=== PATIENT | female | born 1975 | race African-American/Black ===

== ENCOUNTER 2016-09-16 10:28 | Emergency (ER) | payer SELFPAY ==
[2016-09-16] MEDS ORDERED: NORMAL SALINE 1000 ML 1,000 ML IV ONE (10:37)
--- NOTE | 2016-09-16 12:01 | ER Document Report ---
ED Medical Screen (RME) - General Chief Complaint: Vaginal Bleeding Stated Complaint: VAGINAL BLEEDING Notes: 40-year-old female presents with complaints of painful heavy menses. Patient notes she has a history of this, has required transfusion past. I have greeted and performed a rapid initial assessment of this patient. A comprehensive ED assessment and evaluation of the patient, analysis of test results and completion of the medical decision making process will be conducted by additional ED providers. PHYSICAL EXAMINATION: GENERAL: Well-appearing, well-nourished and in no acute distress. Mildly tachycardic HEAD: Atraumatic, normocephalic. EYES: Pupils equal round extraocular movements intact, conjunctiva are normal. ENT: Nares patent NECK: Normal range of motion LUNGS: No respiratory distress Musculoskeletal: Normal range of motion NEUROLOGICAL: Normal speech, normal gait. PSYCH: Normal mood, normal affect. SKIN: Warm, Dry, normal turgor, no rashes or lesions noted. TRAVEL OUTSIDE OF THE [place] IN LAST 30 DAYS: No - Related Data Allergies/Adverse Reactions: aspirin [Aspirin] Allergy (Mild, Verified 09/16/16 11:25) fluoxetine HCl [From Prozac] Allergy (Mild, Verified 09/16/16 11:25) hydrocodone [Hydrocodone] Allergy (Mild, Verified 09/16/16 11:25) methocarbamol [From Robaxin] Allergy (Mild, Verified 09/16/16 11:25) tramadol [Tramadol] Allergy (Verified 09/16/16 11:25) bees Allergy (Uncoded 09/16/16 11:25) Past Medical History - Social History Family history: Reviewed & Not Pertinent Renal/ Medical History: Denies: Hx Peritoneal Dialysis Musculoskeltal Medical History: Reports Hx Arthritis Psychiatric Medical History: Reports: Hx Depression Past Surgical History: Reports: Hx Section - x 2, Hx Tubal Ligation - Immunizations Hx Diphtheria, Pertussis, Tetanus Vaccination: Yes Physical Exam - Vital signs Vitals: Temp Pulse Resp BP Pulse Ox 98.5 F 122 H 18 120/77 99 09/16/16 10:33 09/16/16 10:33 09/16/16 10:33 09/16/16 10:33 09/16/16 10:33 Course - Vital Signs Vital signs: Temp Pulse Resp BP Pulse Ox 98.5 F 122 H 18 120/77 99 09/16/16 10:33 09/16/16 10:33 09/16/16 10:33 09/16/16 10:33 09/16/16 10:33
[2016-09-16 12:24] LABS: ABSOLUTE EOSINOPHILS # (AUTO) 0.1 10^3/uL (0.0-0.6); ABSOLUTE LYMPHOCYTES (AUTO) 1.3 10^3/uL (0.5-4.7); ABSOLUTE MONOCYTES (AUTO) 0.5 10^3/uL (0.1-1.4); ABSOLUTE NEUT (AUTO) 6.6 10^3/uL (1.7-8.2); BASOPHILS % (AUTO) 0.4 % (0-2); EOSINOPHILS % (AUTO) 1.6 % (0-6); HEMATOCRIT 26.8 % (36.0-47.0); HEMOGLOBIN 8.8 g/dL (12.0-15.5); HGB HCT DIFFERENCE -0.4; LYMPHOCYTES % (AUTO) 14.6 % (13-45); MEAN CORPUSCULAR HGB CONC 32.7 g/dL (32.0-36.0); MEAN CORPUSCULAR VOLUME 86 fl (80-97); MONOCYTES % (AUTO) 6.3 % (3-13); RED BLOOD COUNT 3.13 10^6/uL (3.72-5.28); RED CELL DISTRIBUTION WIDTH 15.5 % (11.5-14.0); SEGMENTED NEUTROPHILS % (AUTO) 77.1 % (42-78); WHITE BLOOD COUNT 8.6 10^3/uL (4.0-10.5)
[2016-09-16 12:44] LABS: ALANINE AMINOTRANSFERASE 19 U/L (9-52); ALBUMIN 3.2 g/dL (3.5-5.0); ALKALINE PHOSPHATASE 59 U/L (38-126); ANION GAP 8 (5-19); ASPARTATE AMINO TRANSFERASE 21 U/L (14-36); BILIRUBIN,DIRECT 0.1 mg/dL (0.0-0.4); BILIRUBIN,TOTAL 0.2 mg/dL (0.2-1.3); BLOOD UREA NITROGEN 4 mg/dL (7-20); CALCIUM 8.5 mg/dL (8.4-10.2); CARBON DIOXIDE 26 mmol/L (22-30); CHLORIDE 109 mmol/L (98-107); CREATININE RESULT 0.91 mg/dL (0.52-1.25); GLUCOSE 86 mg/dL (75-110); POTASSIUM 3.8 mmol/L (3.6-5.0); SODIUM 143.1 mmol/L (137-145); TOTAL PROTEIN 5.8 g/dL (6.3-8.2)
[2016-09-16] MEDS ORDERED: MEDROXYPROGESTERONE ACET 10 MG TABLET PO ONE ×2 (15:13→15:17)
--- NOTE | 2016-09-16 15:17 | ER Document Report ---
ED General - General Chief Complaint: Vaginal Bleeding Stated Complaint: VAGINAL BLEEDING TRAVEL OUTSIDE OF THE [place] IN LAST 30 DAYS: No - HPI Patient complains to provider of: vaginal bleeding Notes: Patient coming in with a history of vaginal bleeding states she's had bleeding ever since August 14. Patient denies any shortness of breath weakness or fatigue. Patient states a history of vaginal bleeding the past she was on control which did aid the bleeding however lost her insurance therefore no longer as a way to afford her medication. Patient states she has had blood transfusions in the past. Denies any other discharge and is fevers chills nausea vomiting. States abdominal cramping. - Related Data Allergies/Adverse Reactions: aspirin [Aspirin] Allergy (Mild, Verified 09/16/16 11:25) fluoxetine HCl [From Prozac] Allergy (Mild, Verified 09/16/16 11:25) hydrocodone [Hydrocodone] Allergy (Mild, Verified 09/16/16 11:25) methocarbamol [From Robaxin] Allergy (Mild, Verified 09/16/16 11:25) tramadol [Tramadol] Allergy (Verified 09/16/16 11:25) bees Allergy (Uncoded 09/16/16 11:25) Past Medical History - Social History Smoking Status: Current Every Day Smoker Chew tobacco use (# tins/day): No Frequency of alcohol use: Occasional Drug Abuse: Cocaine Family History: Reviewed & Not Pertinent Patient has suicidal ideation: No Patient has homicidal ideation: No Renal/ Medical History: Denies: Hx Peritoneal Dialysis Musculoskeltal Medical History: Reports Hx Arthritis Psychiatric Medical History: Reports: Hx Depression Past Surgical History: Reports: Hx Section - x 2, Hx Tubal Ligation - Immunizations Hx Diphtheria, Pertussis, Tetanus Vaccination: Yes Review of Systems - Review of Systems Constitutional: No symptoms reported EENT: No symptoms reported Cardiovascular: No symptoms reported Respiratory: No symptoms reported Gastrointestinal: No symptoms reported Genitourinary: No symptoms reported Female Genitourinary: Vaginal bleeding Musculoskeletal: No symptoms reported Skin: No symptoms reported Hematologic/Lymphatic: No symptoms reported Neurological/Psychological: No symptoms reported -: Yes All other systems reviewed and negative Physical Exam - Vital signs Vitals: Temp Pulse Resp BP Pulse Ox 98.5 F 122 H 18 120/77 99 09/16/16 10:33 09/16/16 10:33 09/16/16 10:33 09/16/16 10:33 09/16/16 10:33 Interpretation: Normal - General General appearance: Appears well, Alert - HEENT Head: Normocephalic, Atraumatic Eyes: Normal Pupils: PERRL - Respiratory Respiratory status: No respiratory distress Chest status: Nontender Breath sounds: Normal Chest palpation: Normal - Cardiovascular Rhythm: Regular Heart sounds: Normal auscultation Murmur: No - Abdominal Inspection: Normal Distension: No distension Bowel sounds: Normal Tenderness: Nontender Organomegaly: No organomegaly - Back Back: Normal, Nontender - Extremities General upper extremity: Normal inspection, Nontender, Normal color, Normal ROM , Normal temperature General lower extremity: Normal inspection, Nontender, Normal color, Normal ROM , Normal temperature, Normal weight bearing. No: Paradise's sign - Neurological Neuro grossly intact: Yes Cognition: Normal Orientation: AAOx4 Sanford Coma Scale Eye Opening: Spontaneous [place]ford Coma Scale Verbal: Oriented Abhijit Coma Scale Motor: Obeys Commands Sanford Coma Scale Total: 15 Speech: Normal Motor strength normal: LUE, RUE, LLE, RLE Sensory: Normal - Psychological Associated symptoms: Normal affect, Normal mood - Skin Skin Temperature: Warm Skin Moisture: Dry Skin Color: Normal Course - Re-evaluation Re-evalutation: 09/16/16 16:04 Lab work shows anemia however near baseline for patient. Patient's ultrasound showed fibroids this. Did discuss with Dr. Dinora Jacob of [employer] recommend starting patient back on her Provera daily. Patient agrees plan we will try to have the patient follow-up with [employer] and will have social media marketing analyst follow-up for emergency Medicare - Vital Signs Vital signs: Temp Pulse Resp BP Pulse Ox 98.5 F 122 H 15 111/54 L 100 09/16/16 10:33 09/16/16 10:33 09/16/16 15:31 09/16/16 15:32 09/16/16 15:31 - Laboratory Result Diagrams: 09/16/16 12:04 09/16/16 12:04 Laboratory results interpreted by me: 09/16/16 09/16/16 12:04 12:04 RBC 3.13 L Hgb 8.8 L Hct 26.8 L RDW 15.5 H Chloride 109 H BUN 4 L Total Protein 5.8 L Albumin 3.2 L Discharge - Discharge Clinical Impression: Anemia Qualifiers: Anemia type: unspecified type Qualified Code(s): D64.9 - Anemia, unspecified Menorrhagia Qualifiers: Menorrahagia type: with irregular cycle Qualified Code(s): N92.1 - Excessive and frequent menstruation with irregular cycle Condition: Good Disposition: HOME, SELF-CARE Instructions: Vaginal Bleeding ([facility]), [facility]-Load [facility] Doctors Additional Instructions: Take medications as prescribed. Please follow-up with [employer]. Please try to establish your emergent Medicaid. I will have our ER social media marketing analyst contact you next week to aid in this process. Return to the ER symptoms worsen. Please make sure that you're taking your vitamins with iron. Prescriptions: Medroxyprogesterone Acetate [Provera] 10 mg PO DAILY #30 tablet Vit/Iron Fumarate/FA [ Tablet] 1 each PO DAILY #30 tablet Forms: Return to Work
[2016-09-16 15:36] VITALS: BP 111/54
== END 2016-09-16 15:37 | disposition home or self-care (01) ==
LOC: ER 10:28
DX: N92.1 Excessive and frequent menstruation with irregular cycle (principal); D64.9 Anemia, unspecified; R10.9 Unspecified abdominal pain; F17.200 Nicotine dependence, unspecified, uncomplicated
CPT/HCPCS: 99284; 86900; 86901; 36415; 86850; 84703; 85025; 80053; 76830; J3490; J7030